=== PATIENT | female | born 1995 | race Caucasian/White ===

== ENCOUNTER 2019-10-31 15:29 | Emergency (ER) | payer MEDICAID, OTHER ==
[~2019-10-31] VITALS: Ht 137.2 cm; Wt 99.8 kg
--- NOTE | 2019-10-31 16:13 | NUR ---
Patient discharged to home in stable condition. Written and verbal after care instructions given to patient by MD in [place]. Patient verbalized understanding & compliance of instructions.
== END 2019-10-31 16:14 | disposition home or self-care (01) ==
LOC: ER 15:34
DX: S91.311A Laceration without foreign body, right foot, initial encounter (principal); W26.8XXA Contact with other sharp object(s), not elsewhere classified, initial encounter; Y93.89 Activity, other specified; Y92.002 Bathroom of unspecified non-institutional (private) residence as the place of occurrence of the external cause; Y99.8 Other external cause status
CPT/HCPCS: A4217; A4663

== ENCOUNTER 2019-11-02 15:05 | Emergency (ER) | payer MEDICAID, OTHER ==
[~2019-11-02] VITALS: Ht 157.5 cm; Wt 122.5 kg
--- NOTE | 2019-11-02 15:15 | NUR ---
Dr. Quan at the bedside for MSE.
--- NOTE | 2019-11-02 15:28 | NUR ---
Patient discharged to home in stable conditon. Written and verbal after care instructions given. Patient verbalizes understanding of instructions.
== END 2019-11-02 15:28 | disposition home or self-care (01) ==
LOC: ER 15:05
DX: S91.311D Laceration without foreign body, right foot, subsequent encounter (principal); W26.8XXD Contact with other sharp object(s), not elsewhere classified, subsequent encounter
CPT/HCPCS: A4663

== ENCOUNTER 2019-11-09 14:07 | Emergency (ER) | payer OTHER, MEDICAID ==
[~2019-11-09] VITALS: Ht 137.2 cm; Wt 99.8 kg
--- NOTE | 2019-11-09 14:50 | NUR ---
md removed the stiches on the right foot/. placed band aid after cleaning the area.
== END 2019-11-09 14:58 | disposition home or self-care (01) ==
LOC: ER 14:07
DX: S91.311D Laceration without foreign body, right foot, subsequent encounter (principal); Y93.E1 Activity, personal bathing and showering
CPT/HCPCS: A4663